=== PATIENT | male | born 1975 | race Caucasian/White ===

== ENCOUNTER 2017-08-10 18:14 | Emergency (ER) | payer MEDICAID ==
[~2017-08-10] VITALS: Ht 185.4 cm; Wt 98.9 kg
[~2017-08-10 18:14] MED LIST: HYDR1TAB4 PO
[2017-08-10 18:17] VITALS: BP 131/73
[2017-08-10] MEDS ORDERED: LIDOCAINE VISCOUS 2% UD 15 ML UDC ONE (18:48)
[2017-08-10] MEDS ORDERED: LIDOCAINE VISCOUS 2% UD 15 ML UDC MM ONE (19:00)
== END 2017-08-10 18:55 | disposition home or self-care (01) ==
LOC: ER 18:17
DX: S13 Dislocation and sprain of joints and ligaments at neck level (principal); F41.9 Anxiety disorder, unspecified; G89.29 Other chronic pain; F17.200 Nicotine dependence, unspecified, uncomplicated; Z88.2 Allergy status to sulfonamides; X58.XXXA Exposure to other specified factors, initial encounter; Y93.67 Activity, basketball; Y92.89 Other specified places as the place of occurrence of the external cause; Y99.8 Other external cause status
CPT/HCPCS: 99282; A4606; Z7610

== ENCOUNTER 2017-08-16 11:19 | Emergency (ER) | payer MEDICAID ==
[~2017-08-16] VITALS: Ht 185.4 cm; Wt 98.9 kg
[2017-08-16 11:24] VITALS: BP 132/72
--- NOTE | 2017-08-16 12:53 | NUR ---
MESSAGE LEFT FOR [facility].
--- NOTE | 2017-08-16 13:18 | NUR ---
SECOND CALL FOR DR CASTILLO, PAGED BY RELIEF MAN.
== END 2017-08-16 14:07 | disposition home or self-care (01) ==
LOC: ER 11:24
DX: J02.9 Acute pharyngitis, unspecified (principal); R49.8 Other voice and resonance disorders; F41.9 Anxiety disorder, unspecified; G89.29 Other chronic pain; F17.200 Nicotine dependence, unspecified, uncomplicated; Z88.2 Allergy status to sulfonamides
CPT/HCPCS: 70490; 99284; A4606; Z7610